=== PATIENT | male | born 1945 | race Caucasian/White ===

== ENCOUNTER 2019-09-13 10:43 | Day surgery (SDC) | payer OTHER ==
[~2019-09-13 10:43] MED LIST: COZAAR100 MG PO; GABAPENT PO; HYDREA500 M1 PO; HYDROCHLOROTHIAZIDE PO; NORVASC5 MG PO; PAXIL PO; SOTALOL120 MG PO; XARELTO20 MG PO
[2019-09-13] MEDS ORDERED: ULTRAM50 MG PO (15:18)
[2019-09-13] MEDS ORDERED: NEURONTIN300 MG PO (15:18)
[2019-09-13] MEDS ORDERED: TYLENOL ARTHRI650 MG PO (15:18)
[2019-09-13] MEDS ORDERED: MIRALAX17 GM PO (15:18)
== END 2019-09-13 18:50 | disposition home or self-care (01) ==
LOC: CIR.AMB 10:43
DX: K40.90 Unilateral inguinal hernia, without obstruction or gangrene, not specified as recurrent (principal)